=== PATIENT | female | born 1990 | race Caucasian/White ===

== ENCOUNTER → 2017-11-24 13:52 | Outpatient (CLI) | payer OTHER, SELFPAY ==
--- NOTE | 2017-11-24 14:04 | CT_ITS ---
STUDY: CT FACIAL BONES WITHOUT CONTRAST REASON FOR EXAM: Female, 27 years old. Sinusitis RADIATION DOSAGE (If Supplied By Facility): CTDIvol = ( 33.45 ) mGy, DLP = ( 797.27 ) mGycm TECHNIQUE: The patient was scanned in a multi detector CT scanner. Sagittal and coronal images were reconstructed. Individualized dose optimization techniques were used for this CT. COMPARISON: None. FINDINGS: Normal soft tissue structures. Normal orbital london and orbital contents. Normal nasal bones and anterior nasal spine. Normal facial bones. There is no demonstrated fracture. Normal visualized paranasal sinuses. CT/Sinus/Facial Bone IMPRESSION: Normal unenhanced CT of the facial bones. Electronically Signed: Tejinder Ivey MD at 21:54 EDT , Service support ,
== END ==
PROVIDERS: Referring Provider Otolaryngology; Visit Provider Otolaryngology
DX: J32.9 Chronic sinusitis, unspecified (principal)
CPT/HCPCS: 70486

== ENCOUNTER 2024-05-03 19:14 | Inpatient (IN) | payer OTHER, SELFPAY ==
[2024-05-03] VITALS (7 sets, daily range): BP systolic 105–115; BP diastolic 61–69; PULSE 68–75; RESP 15–16; TEMP 36.1–36.5; O2SAT 97–98; BMI 40.9
--- NOTE | 2024-05-03 19:44 | PCM.HP.OB ---
HPI - General General Date of Admission: 05/03/24 Date of Service: 05/03/24 HPI Narrative ELISABETH MARK, is a 33 F who presents for induction. Maternal Data Information BRUNILDA Calculator Estimated Delivery Date Method Current WG Current Estimate 05/22/24 Manual 37w 2d PFSH PFS Medical History (Updated 05/03/24 @ 19:[address] Jose Wilkins MD) GERD (gastroesophageal reflux disease) Allergy/AdvReac Type Severity Reaction Status Date / Time No Known Allergies Allergy Verified 05/03/24 19:35 Surgical History (Updated 05/03/24 @ 19:[address] Jose Wilkins MD) Hx of esophagogastroduodenoscopy Hx of appendectomy Social History Smoking Status: Never smoker History Elective abortions Hx Para 0 Spontaneous abortions Hx # Term Pregnancies Ectopic pregnancies Hx # Pregnancies Multiple births # of living children NST FHR Rate Baby A Baseline: 130 Variability:: Moderate Accelerations:: 15 x 15 Decelerations:: None Uterine Activity:: Q 1-2 minutes Vital Signs Vital Signs Vital Signs: 05/03/24 19:36 05/03/24 19:36 05/03/24 19:36 Temperature Temperature Source Pulse Rate 75 Respiratory Rate Blood Pressure 105/64 BP Systolic 105 BP Diastolic 64 Pulse Ox 98 05/03/24 19:36 05/03/24 19:36 05/03/24 19:36 Temperature 97.0 F L Temperature Source Temporal Pulse Rate Respiratory Rate 16 Blood Pressure BP Systolic BP Diastolic Pulse Ox Weight Weight: 253 lb 9 oz Body Mass Index (BMI) 40.9 Physical Exam Const alert, oriented x3 and no apparent distress Chest inspection of chest normal Resp normal respiratory effort GI soft to palpation, non-tender and non-distended Inspection: gravid external exam normal Narrative: cvx - 1.5/50/-2 Labs Labs Labs: No Data to Display Assessment & Plan (1) Gestational diabetes requiring insulin: COMMENT: @ 37&2 (2) LGA (large for gestational age) fetus: PLAN: Plan Admit to L&D. Induction for uncontrolled GDM per [facility]. Intracervical morocho placed. Will start pitocin if needed. GDM - management per diabetic protocol. GBS negative. EFW - about 4000g based recent US. Patient with adequate pelvis. Pain - epidural as desired. Routine care
[2024-05-03] MEDS: Lactated Ringers 1,000 ML 50 ML IV (19:50)
[2024-05-03 19:59] LABS: Absolute Lymphocyte Count 2.22 X10^3/uL (0.83-4.51); Absolute Neutrophil Count 7.5 X10^3/uL (2.0-7.7); Basophil# 0.05 X10^3/uL; Basophil% 0.5 % (0-1); Eosinophil# 0.13 X10^3/uL; Eosinophils% 1.2 % (0-5); Hematocrit 32.6 % (37-47); Hemoglobin 10.5 g/dL (12.0-15.0); Lymphocyte # 2.22 X10^3/ul (0.83-4.51); Lymphocyte % 21.3 % (19-41); Mean Corp Hgb Conc 32.2 g/dL (32-36); Mean Corpuscular Hgb 25.8 pg (27.0-32.0); Mean Corpuscular Volume 80.1 fL (81-99); Mean Platelet Vol. 10.4 fl (6.2-12.0); Monocyte# 0.48 X10^3/uL; Monocyte% 4.6 % (0-10); NRBC Flagged by Analyzer 0 % (0-5); Neutrophil # 7.49 X10^3/uL (2.7-7.7); Neutrophil % 71.7 % (47-70); Platelet Count 372 K/mm3 (150-450); RBC Distribution Width CV 13.8 % (11.6-14.6); RBC Distribution Width SD 39.7 fl (35.1-43.9); Red Blood Count 4.07 M/mm3 (4.2-5.4); White Blood Count 10.4 K/mm3 (4.4-11.0)
[2024-05-03] MEDS: 0.9% Normal Saline Single 100 ML IV.SOLN. INTRA-UTER (20:00)
[2024-05-03 20:32] LABS: Bedside Glucose 110 mg/dL (74-106)
[2024-05-03] MEDS: Mag Hydrox/Al Hydrox/Simeth 30 ML UDC PO (20:47)
[2024-05-03 21:15] LABS: Syphilis Antibodies Nonreactive (Nonreactive)
[2024-05-03 21:38] LABS: Bedside Glucose 114 mg/dL (74-106)
[2024-05-03 22:03] LABS: Bedside Glucose 95 mg/dL (74-106)
[2024-05-04] VITALS (85 sets, daily range): BP systolic 93–139; BP diastolic 51–81; PULSE 61–104; RESP 14–18; TEMP 36.1–39.2; O2SAT 87–100
[2024-05-04 01:44] LABS: Bedside Glucose 82 mg/dL (74-106)
[2024-05-04] MEDS: Oxytocin 15 Units/NS 250ml 15 UNITS/250 ML IV.SOLN 2 UNITS IV (02:55)
[2024-05-04] MEDS: Mag Hydrox/Al Hydrox/Simeth 30 ML UDC PO ×2 (04:06→18:03)
[2024-05-04] MEDS: Acetaminophen 500 MG Tablet PO ×2 (05:29→20:25)
[2024-05-04 05:33] LABS: Bedside Glucose 114 mg/dL (74-106)
[2024-05-04 08:02] LABS: Bedside Glucose 98 mg/dL (74-106)
[2024-05-04 09:08] LABS: Bedside Glucose 96 mg/dL (74-106)
[2024-05-04] MEDS: Lactated Ringers 1,000 ML 999 ML IV (09:43)
[2024-05-04 09:59] LABS: Bedside Glucose 101 mg/dL (74-106)
[2024-05-04] MEDS: fentaNYL-bupivacaine (epidural) 100 ML BAG EPIDURAL ×3 (10:36→17:56)
[2024-05-04 11:38] LABS: Bedside Glucose 95 mg/dL (74-106)
[2024-05-04] MEDS: Ondansetron 4 MG/2 ML Vial IV ×2 (12:48→20:49)
[2024-05-04] MEDS: Lactated Ringers 1,000 ML 200 ML IV ×3 (12:48→23:10)
[2024-05-04 12:49] LABS: Bedside Glucose 107 mg/dL (74-106)
[2024-05-04 14:14] LABS: Bedside Glucose 93 mg/dL (74-106)
[2024-05-04 15:02] LABS: Bedside Glucose 89 mg/dL (74-106)
[2024-05-04 15:59] LABS: Bedside Glucose 70 mg/dL (74-106)
[2024-05-04 17:02] LABS: Bedside Glucose 91 mg/dL (74-106)
[2024-05-04 17:57] LABS: Bedside Glucose 97 mg/dL (74-106)
[2024-05-04] MEDS: DiphenhydrAMINE 50 MG/ML Syringe 25 MG IV (18:19)
[2024-05-04 19:09] LABS: Bedside Glucose 96 mg/dL (74-106)
[2024-05-04] MEDS: LACTATED RINGERS 500 ML 999 ML IV (19:36)
--- NOTE | 2024-05-04 19:56 | PCM.PN.BLA ---
Progress Note feeling some increased pelvic pressure. Feeling chilled. Physical Exam Narrative cervix anterior lip, -1, progresses to 0 station w/ ctx. Moderate caput. DONNELL Assessment & Plan Assessment/Plan (1) LGA (large for gestational age) fetus: (2) Gestational diabetes requiring insulin: PLAN: now w/ fever, tachycardia. Suspected triple I. D/w her recommendation for tylenol and IV antibiotics. She agrees w/ plan. Recheck cervix in 1 hr and likely start pushing. Pelvis clinically adequate. EFW < 4500 gm clinically but GDM and LGA by US for gestational age. Cont. expectant management.
--- NOTE | 2024-05-04 20:16 | PCM.PN.CNM ---
Subjective Subjective Late entry from 1800. Patient seen at bedside. Comfortable with epidural replacement. Objective Data Objective Data Vital Signs: Vital Signs Temp Pulse Resp BP Pulse Ox 102.5 F H 104 H 16 102/54 L 100 05/04/24 19:50 05/04/24 19:49 05/04/24 18:49 05/04/24 19:49 05/04/24 17:29 Weight: 253 lb 9 oz Body Mass Index (BMI) 40.9 Intake & Output: Intake and Output for Last 24 Hours 05/02/24 05/03/24 05/04/24 23:59 23:59 23:59 Intake Total 3441.67 / 3441.67 Output Total 650 / 650 Balance 2791.67 / 2791.67 Lab / Micro Data 05/03/24 19:50 Labs: Laboratory Results - last 24 hr 05/03/24 19:50: Syphilis Total Ab Nonreactive, Blood Type O POSITIVE, Antibody Screen NEGATIVE 05/03/24 20:06: POC Glucose 110 H 05/03/24 20:52: POC Glucose 114 H 05/03/24 21:43: POC Glucose 95 05/04/24 01:18: POC Glucose 82 05/04/24 05:08: POC Glucose 114 H 05/04/24 07:37: POC Glucose 98 05/04/24 08:47: POC Glucose 96 05/04/24 09:35: POC Glucose 101 05/04/24 11:15: POC Glucose 95 05/04/24 12:18: POC Glucose 107 H 05/04/24 13:35: POC Glucose 93 05/04/24 14:40: POC Glucose 89 05/04/24 15:40: POC Glucose 70 L 05/04/24 16:43: POC Glucose 91 05/04/24 17:31: POC Glucose 97 05/04/24 18:48: POC Glucose 96 Assessment & Plan (1) LGA (large for gestational age) fetus: (2) Gestational diabetes requiring insulin: COMMENT: @ 37&2 (3) Encounter for induction of labor: PLAN: Plan CE - Moderate caput Anterior cervix swelling- Give Benadryl 25 mg IV x 1 now Continue Pitocin IV per protocol Dr. Dandre schmidt
[2024-05-04] MEDS: 0.9% Saline Lock 10 ML Syringe IV (20:49)
[2024-05-04] MEDS: GENTAMICIN IVPB (20:58)
[2024-05-04] MEDS: WATER IVPB (20:58)
[2024-05-04] MEDS: DEXTROSE 5% IVPB (20:58)
[2024-05-04] MEDS: Ampicillin 2 GM in 0.9% Normal Saline (100mL MB+) 100 ML IV (21:45)
[2024-05-04 22:57] LABS: Bedside Glucose 113 mg/dL (74-106)
[2024-05-04 22:57] LABS: Bedside Glucose 91 mg/dL (74-106)
[2024-05-04 23:04] LABS: Bedside Glucose 100 mg/dL (74-106)
[2024-05-05] VITALS (23 sets, daily range): BP systolic 81–124; BP diastolic 54–68; PULSE 72–109; RESP 14–97; TEMP 36.1–37; O2SAT 93–100
[2024-05-05 00:23] LABS: Bedside Glucose 120 mg/dL (74-106)
[2024-05-05 01:22] LABS: Bedside Glucose 128 mg/dL (74-106)
[2024-05-05] MEDS: 0.9% Saline Lock 10 ML Syringe IV ×6 (01:32→20:51)
--- NOTE | 2024-05-05 01:39 | PCM.PN.BLA ---
Progress Note Comfortable with epidural, some pressure caitlyn. in rectum Cervix complete-can feel anterior some cervix but caput through it. Large caput. Caput +2 but skull at 0 to +[address] Assessment & Plan Assessment/Plan (1) Encounter for induction of labor: (2) LGA (large for gestational age) fetus: (3) Gestational diabetes requiring insulin: PLAN: Plan Discussed with the patient that despite being anterior lip to complete since approximately 8 PM, there has not been a lot of significant descent with over 2 hours of active pushing. Patient has suspected triple I and has been started on antibiotics. I discussed with the patient that I would not recommend trial of vacuum-assisted vaginal delivery due to LGA status and increased risk of shoulder dystocia or failure. This may make the even more difficult. I discussed with her and her partner risk benefits and alternatives to proceeding with . Patient will have triple antibiotics, received TXA preoperatively, and will use the pillow to help elevate the skull out of the pelvis. Patient's questions were answered and she agrees to proceed. Delivery team is notified and being assembled for AUGUST .
[2024-05-05] MEDS: Sodium Citrate/Citric Acid 30 ML UDC PO (01:42)
--- NOTE | 2024-05-05 02:00 | PLAC_PTH ---
PATIENT: ELISABETH MARK LOC: [facility] U#:[id number] AGE/SX: 33/F ROOM: WP007 RE05/03/[address]: Dr. Thuy Amos MD : 1990 BED: 1 DIS: 05/08/2024 SPEC #: [id number] RECD: 05/05/24 09:37 STATUS: ANAYA REMorena #: [id number] MARGARITA: 05/05/24 02:[address]: Thuy Amos DEPT: SURGICAL PATHOLOGY RECD BY: Rebecca Gong ENTERED: 05/05/24 11:27 SP TYPE: PLACENTA OTHR DR: Vy Primary Care Phys Tissues: Placenta, NOS Procedures: Surgery Specimen Level V HEADER OPERATION: Primary section PRE-OP DIAGNOSIS: Maternal fever, suspected triple I TISSUE SUBMITTED: Placenta MICROSCOPIC DIAGNOSIS A. Placenta: * Mature third trimester placenta (867 grams, formalin fixed weight) with acute inflammation of the chorionic plate and subchorionic fibrin deposition * Three vessel umbilical cord with acute funisitis * membranes with acute chorioamnionitis MICROSCOPIC DESCRIPTION Slides are reviewed. GROSS DESCRIPTION SPECIMEN: PLACENTA / CLINICAL INFORMATION: A. Weight: 4.155 kg B. Gestational Age:37 weeks and 4 days C. Sex: Male PLACENTAL WEIGHT (POST FIXATION): 867gm PLACENTAL DIMENSIONS: 24.2 x 17.1 x 3.2 cm PLACENTAL SHAPE: Usual ovoid PLACENTAL WEIGHT FOR GESTATIONAL AGE: Within 10-99th percentile (over/under percentile) MEMBRANES - Present A. Insertion: Marginal B. Site of rupture from edge: 15.5 cm from edge of placental disc C. Color of membrane: Whitt-larios D. Abnormalities: Thick and focally cloudy UMBILICAL CORD - Present A. Color: Whitt-larios B. Insertion: Eccentric C. Length: 49.2 cm D. Diameter: 1.5 cm E. Number of vessels: Three F. Abnormalities: Focally dilated and contains red-brown blood clot PLACENTAL DISC - Present A. Color of surface: Whitt-larios B. surface abnormalities: Focal areas of subchorionic fibrin involving less than 5% of surface C. Maternal cotyledons: Focally disrupted D. Attached retro placental clot: Minimal amount of loosely adherent blood clot E. Cut surface: Dark red and spongy F. Lesions: None G. Separate clot: Absent SECTIONS SUBMITTED: 1. Membrane roll and two umbilical cord cross sections 2. surface sections with areas of fibrin 3. Maternal surface sections at area of disrupted cotyledons 4-5. Placental disc full thickness sections JK. 05/05/2024 CPT: 04536
--- NOTE | 2024-05-05 02:49 | OP.PCM_ITS ---
Assessment & Plan (1) LGA (large for gestational age) fetus: (2) delivery delivered: (3) Maternal fever during labor, delivered: PLAN: suspected triple I, received triple antibiotics, will cont. amp/clinda x 2 more doses, received gent. Maternal Data Information BRUNILDA Calculator Estimated Delivery Date Method Current WG Current Estimate 05/22/24 Manual 37w 4d Final BRUNILDA: 05/22/24 Gestational age: 37 47 Operative Report (OB) Cecarean Details Procedure Type: low transverse Date of Procedure: 05/05/24 Procedure Start Time: 02:08 Procedure Stop Time: 02:53 Time of Delivery: 02:11 Pre-Operative Diagnosis: Arrrest of Descent, Suspected cephalopelvic disproportion and Other Other Pre-Operative diagnosis: suspected triple I Post-Operative Diagnosis: Same as Pre-operative diagnosis Classification: AUGUST Type of Anesthesia: Epidural Special Medications: duramorph, TXA Antibiotic Given: Clindamycin 600mg IV x1 and Gentamicin 1.5mg/kg IV x1 (and amp) Drain: Serrano to straight drain Estimated Blood Loss: 900 Findings Description of surgery: The patient was taken to the operating room. Vaginal prep was done and the pillow was placed vaginally and inflated with 180 cc of normal saline in the usual sterile fashion. She was prepped and draped in the dorsal supine position.. A Pfannenstiel skin incision was made approximately 2 cm above the symphysis pubis and carried through to underlying layer fascia with the scalpel. The fascia was incised incised in the midline and extended laterally with the Cason scissors. The fascia was dissected off the rectus muscles with blunt and sharp dissection. The rectus muscles were in the midline and the peritoneum was entered bluntly. The peritoneal incision was stretched and the bladder blade was placed. The uterine incision was made in a low transverse fashion with the scalpel and extended superiorly and inferiorly with blunt dissection. The amniotic membranes were ruptured bluntly and clear amniotic fluid returned. A red rubber catheter was placed down past the head to help break the suction. Hand was placed under the infant's head and the suction was broken and care was taken to keep the head and the flexed position. The 's head was brought to the incision in the flexed position and delivered without difficulty. The remainder of the was delivered with gentle traction and fundal pressure in the standard fashion. The mouth and nares were bulb suctioned. The cord was clamped and cut as the infant was stimulated. Cord clamping was not delayed so that the infant could be taken to the warmer as he was not immediately vigorous. The was handed off to the waiting nursing staff. The placenta was delivered with fundal massage and gentle traction in the standard fashion. The uterus was exteriorized and cleared of all clots and debris. . The uterine incision was closed with #1 Vicryl in a running locked fashion. There was a cervical laceration extending down on the patient's right side that was secured with the same suture. Hemostasis was noted. A second layer of the same suture was used in an imbricating fashion over the midportion of the incision where there was some bleeding sinuses. The incision was examined and was found to be hemostatic. The uterus was placed back into the peritoneal cavity and hemostasis was again confirmed. There is small amount of oozing from some peritoneal surfaces. Hamablast was placed over the uterine incision and pressure was held for 2 min utes and hemostasis was noted. The rectus muscles were examined and any bleeding was Bovie cauterized. The parietal peritoneum and rectus muscles were closed en bloc with an 0 Vicryl running suture. Hemablast was placed over that layer along with a little Isela. The rectus fascia was examined and any bleeding was Bovie cauterized and the rectus fascia was closed with #1 PDS suture in a running standard fashion. Isela was placed over the rectus fascia and the subcutaneous tissue. The subcutaneous tissue was examining and any bleeding was Bovie cauterized. The subcutaneous tissue was reapproximated with 3-0 Vicryl suture. The skin was closed in a subcuticular fashion by the CHIEF CRUISER with me present in the labor and delivery suite. I performed the remainder of the procedure with assistance. All sponge, lap, and needle counts were correct. The patient was taken to her room for recovery in a stable condition. Surgical findings: Normal tubes and ovaries normal placenta with three-vessel cord Presentation: Vertex Amniotic Membrane Rupture Type: Artificial Amniotic Fluid Description: Clear Placental Delivery Description: Expressed Placenta Disposition: [facility] Specimen collected: Yes Description of specimen(s) removed: placenta Cord Vessel Description: 3 Vessels Cord Entanglement: Around neck x 1, loose Nuchal Cord Compression: Without compression Cord Gases: ABG and VBG Infant A gender: Male (Nadeem) (1 minute): 3 (5 minute): 5 ( 7 at 10 min) Delayed Cord Clamping: Yes Turkey Boner gaming dealer: Yes Surveyor: Alf Godfrey Tasks completed by certified surgical first assistant: Closing, Altering tissue and Retracting Additional chemical laboratory assistant?: No Complications Complications: No
[2024-05-05] MEDS: Oxytocin 15 Units/NS 250ml 15 UNITS/250 ML IV.SOLN 83 UNITS IV (03:10)
[2024-05-05] MEDS: Ketorolac 30 MG/ML Syringe IV ×4 (03:41→20:51)
[2024-05-05 04:20] LABS: Bedside Glucose 119 mg/dL (74-106)
[2024-05-05] MEDS: LACTATED RINGERS 500 ML 999 ML IV (05:52)
[2024-05-05] MEDS: Lactated Ringers 1,000 ML 100 ML IV (05:52)
[2024-05-05] MEDS: Acetaminophen 500 MG Tablet 1000 MG PO ×4 (05:53→23:56)
--- NOTE | 2024-05-05 06:16 | NURSING ---
Pt was up with x2 assist to bathroom, pt was able to ambulate well with standby assist. Pt started to feel lightheaded and dizzy, and was assisted to a wheel chair. Pt passed out for approximately 15 seconds while sitting in the wheel chair and was able to transfer back into bed from wheelchair with x2 assist. Once in bed pt stated the dizziness was improving, BP was 91/58, and bleeding was appropriate. Pt instructed to call for help before ambulating and morocho left in place. Provider notified and a 500ml bolus was initiated. Will plan for morning CBC and continue to monitor closely.
[2024-05-05 06:24] LABS: Hematocrit 26.3 % (37-47); Hemoglobin 8.5 g/dL (12.0-15.0); Mean Corp Hgb Conc 32.3 g/dL (32-36); Mean Corpuscular Volume 80.4 fL (81-99); Mean Platelet Vol. 10.4 fl (6.2-12.0); Platelet Count 276 K/mm3 (150-450); RBC Distribution Width CV 13.9 % (11.6-14.6); RBC Distribution Width SD 40.5 fl (35.1-43.9); Red Blood Count 3.27 M/mm3 (4.2-5.4); White Blood Count 20.6 K/mm3 (4.4-11.0)
[2024-05-05] MEDS: Ampicillin 2 GM in 0.9% Normal Saline (100mL MB+) 100 ML IV ×2 (08:24→14:59)
[2024-05-05] MEDS: Clindamycin 600 MG/50 ML BAG 100 MG IV ×2 (09:16→15:40)
[2024-05-05] MEDS: Senna/Docusate Sodium 1 Tablet PO ×2 (09:22)
[2024-05-05 11:04] LABS: Pathology Specimen OB SEE PATHOLOGY REPORT
[2024-05-05] MEDS: Enoxaparin 40 MG/0.4 ML Syringe SC (14:57)
[2024-05-06 02:00] VITALS: BP 87/54; PULSE 75; RESP 16; TEMP 36.3; O2SAT 97
[2024-05-06] MEDS: Enoxaparin 40 MG/0.4 ML Syringe SC ×2 (02:04→14:46)
[2024-05-06] MEDS: Ibuprofen 600 MG Tablet PO ×4 (03:29→21:24)
[2024-05-06 06:07] LABS: Hematocrit 24.6 % (37-47); Hemoglobin 7.9 g/dL (12.0-15.0); Mean Corp Hgb Conc 32.1 g/dL (32-36); Mean Corpuscular Hgb 26.3 pg (27.0-32.0); Mean Platelet Vol. 10.3 fl (6.2-12.0); Platelet Count 312 K/mm3 (150-450); RBC Distribution Width CV 14.3 % (11.6-14.6); RBC Distribution Width SD 41.8 fl (35.1-43.9); White Blood Count 22.8 K/mm3 (4.4-11.0)
[2024-05-06 06:21] LABS: Bedside Glucose 113 mg/dL (74-106)
[2024-05-06] MEDS: Acetaminophen 500 MG Tablet 1000 MG PO ×3 (06:57→18:25)
--- NOTE | 2024-05-06 06:57 | PCM.PN.OB ---
Subjective Subjective Patient sleeping. Has been breast feeding on and off all night. Hgb 7.9 this am. Lochia mild per nursing. Giving IV iron today. Objective Data Objective Data Vital Signs: Vital Signs Temp Pulse Resp BP Pulse Ox O2 Del Method 97.3 F L 75 16 87/54 L 97 Room Air 05/06/24 02:00 05/06/24 02:00 05/06/24 02:00 05/06/24 02:00 05/06/24 02:00 05/06/24 02:00 Oxygen Delivery Method Room Air Weight: 115.014 kg Body Mass Index (BMI) 40.9 Intake & Output: Intake and Output for Last 24 Hours 05/04/24 05/05/24 05/06/24 23:59 23:59 23:59 Intake Total 5101.92 / 5101.92 2463.33 / 2463.33 Output Total 650 / 650 2900 / 2900 Balance 4451.92 / 4451.92 -436.67 / -436.67 Lab / Micro Data 05/06/24 05:55 Labs: Laboratory Results - last 24 hr 05/06/24 05:47: POC Glucose 113 H 05/06/24 05:55: WBC 22.8 H, RBC 3.00 L, Hgb 7.9 L, Hct 24.6 L, MCV 82.0, MCH 26.3 L, MCHC 32.1, RDW Std Deviation 41.8, RDW Coeff of Mykel 14.3, Plt Count 312, MPV 10.3 Assessment & Plan (1) delivery delivered: (2) anemia: PLAN: Plan IV iron today with repeat tomorrow am
[2024-05-06] MEDS: Senna/Docusate Sodium 1 Tablet PO (08:54)
[2024-05-06] MEDS: Iron Sucrose Complex 200 MG in 0.9% Normal Saline (100mL Bag) 100 ML 220 MG IV (08:55)
[2024-05-06] MEDS: 0.9% Saline Lock 10 ML Syringe IV (08:55)
[2024-05-06 09:12] VITALS: BP 104/64; PULSE 82; RESP 16; TEMP 36.2; O2SAT 98
[2024-05-06 14:43] VITALS: BP 108/65; PULSE 92; RESP 16; TEMP 36.2; O2SAT 98
[2024-05-06 20:15] VITALS: BP 106/69; PULSE 84; RESP 16; TEMP 36.4; O2SAT 99
[2024-05-07] MEDS: Acetaminophen 500 MG Tablet 1000 MG PO ×4 (00:33→20:52)
[2024-05-07 01:55] VITALS: BP 108/82; PULSE 90; RESP 16; TEMP 36.4; O2SAT 99
[2024-05-07] MEDS: Ibuprofen 600 MG Tablet PO ×4 (03:00→21:25)
[2024-05-07] MEDS: Enoxaparin 40 MG/0.4 ML Syringe SC ×2 (03:00→16:44)
[2024-05-07 06:07] LABS: Absolute Lymphocyte Count 2.24 X10^3/uL (0.83-4.51); Absolute Neutrophil Count 14.1 X10^3/uL (2.0-7.7); Basophil# 0.07 X10^3/uL; Basophil% 0.4 % (0-1); Eosinophil# 0.29 X10^3/uL; Eosinophils% 1.7 % (0-5); Hemoglobin 8.2 g/dL (12.0-15.0); Lymphocyte # 2.24 X10^3/ul (0.83-4.51); Lymphocyte % 12.8 % (19-41); Mean Corp Hgb Conc 31.5 g/dL (32-36); Mean Corpuscular Hgb 25.6 pg (27.0-32.0); Mean Corpuscular Volume 81.3 fL (81-99); Mean Platelet Vol. 10.3 fl (6.2-12.0); Monocyte# 0.66 X10^3/uL; Monocyte% 3.8 % (0-10); NRBC Flagged by Analyzer 0 % (0-5); Neutrophil # 14.06 X10^3/uL (2.7-7.7); Neutrophil % 80.3 % (47-70); Platelet Count 419 K/mm3 (150-450); RBC Distribution Width CV 14.3 % (11.6-14.6); White Blood Count 17.5 K/mm3 (4.4-11.0)
[2024-05-07 08:21] VITALS: BP 131/82; PULSE 104; RESP 18; TEMP 36.2
[2024-05-07] MEDS: Senna/Docusate Sodium 1 Tablet PO (09:35)
--- NOTE | 2024-05-07 10:43 | PCM.PN.OB ---
Subjective Subjective Doing well per patient and nursing staff. Ambulating and taking PO without difficulty. Voiding and passing flatus. Pain controlled. , services for assistance. Denies headache, visual changes, chest pain, shortness of breath, leg pain or increased bleeding. Lochia normal. Objective Data Objective Data Vital Signs: Vital Signs Temp Pulse Resp BP Pulse Ox O2 Del Method 97.2 F L 104 H 18 131/82 H 99 Room Air 05/07/24 08:21 05/07/24 08:21 05/07/24 08:21 05/07/24 08:21 05/07/24 01:55 05/07/24 08:21 Oxygen Delivery Method Room Air Weight: 253 lb 9 oz Body Mass Index (BMI) 40.9 Intake & Output: Intake and Output for Last 24 Hours 05/05/24 05/06/24 05/07/24 23:59 23:59 23:59 Intake Total 2463.33 / 2463.33 110 / 110 Output Total 2900 / 2900 Balance -436.67 / -436.67 110 / 110 Lab / Micro Data 05/07/24 05:55 Labs: Laboratory Results - last 24 hr 05/07/24 05:55: WBC 17.5 H, RBC 3.20 L, Hgb 8.2 L, Hct 26.0 L, MCV 81.3, MCH 25.6 L, MCHC 31.5 L, RDW Std Deviation 42.0, RDW Coeff of Mykel 14.3, Plt Count 419, MPV 10.3, Immature Gran % (Auto) 1.000 H, Neut % (Auto) 80.3 H, Lymph % (Auto) 12.8 L, Radford % (Auto) 3.8, Eos % (Auto) 1.7, Baso % (Auto) 0.4, Absolute Neuts (auto) 14.1 H, Absolute Lymphs (auto) 2.24, Nucleated RBC % 0 ROS Constitutional Constitutional: Reports systems reviewed and no addt'l complaints, except as documented; Denies headache(s) Eyes Eyes: Denies acute decrease in peripheral vision, blurry vision or change in vision ENT HEENT: Reports systems reviewed and no addt'l complaints, except as documented Cardiovascular Cardiovascular: Denies chest pain or dizziness Respiratory/Chest Respiratory/Chest: Denies cough, dyspnea, dyspnea on exertion, shortness of breath at rest or shortness of breath with exertion Gastrointestinal Gastrointestinal: Denies abdominal pain, diarrhea, nausea or vomiting Genitourinary Genitourinary: Denies abdominal discomfort Musculoskeletal Musculoskeletal: Denies limited range of motion Integumentary Integumentary: Reports systems reviewed and no addt'l complaints, except as documented Neurologic Neurologic: Reports systems reviewed and no addt'l complaints, except as documented Psychiatric Psychiatric: Reports systems reviewed and no addt'l complaints, except as documented Endocrine Endocrinology: Reports systems reviewed and no addt'l complaints, except as documented Hematologic/Lymphatic Hematologic/Lymphatic: Reports systems reviewed and no addt'l complaints, except as documented Allergic/Immunologic Allergic/Immunologic: Reports systems reviewed and no addt'l complaints, except as documented Physical Exam Const alert and oriented x3 General Appearance: cooperative Orientation / Consciousness: awake, oriented to person, oriented to place and oriented to time Exam Limitations: no limitations HEENT normocephalic Head and Scalp: normal to inspection, normocephalic and atraumatic Face and Sinus: normal facial exam Eyes General Eye: normal appearance of both eyes Neck full ROM Chest Chest: symmetrical chest wall rise Resp normal respiratory effort and normal air movement Auscultation: clear to auscultation bilaterally Cardio regular rate, regular rhythm, S1 normal heart sound, S2 normal heart sound, no murmurs, no rub, no gallops and no clicks GI normal to inspection, nondistended, normoactive bowel sounds and non-tender appearance of the vagina normal Bladder / Kidney Exam: no CVA tenderness Back/Spine normal ROM Extremity normal to inspection and full ROM Skin no rashes or lesions noted Neuro oriented x3, CN's II-XII intact bilaterally and moves all extremities Sensorium / Orientation: awake, alert and oriented to person Motor Exam: clonus absent Deep Tendon Reflexes: Rt Patellar (L4): 2+ and Lt Patellar (L4): 2+ Assessment & Plan (1) anemia: (2) Maternal fever during labor, delivered: (3) delivery delivered: (4) Lactating mother: PLAN: Plan 1) Routine PPD#1 2) Vitals stable 3) I&O 4) Pain management 5) services PRN 6) Planning D/C home tomorrow
[2024-05-07] MEDS: oxyCODONE 5 MG Tablet PO ×2 (13:44→20:53)
[2024-05-07 15:24] VITALS: BP 116/69; PULSE 88; RESP 17; TEMP 36
[2024-05-07] MEDS: Ferrous Sulfate 325 MG Tablet PO (17:48)
[2024-05-07 20:45] VITALS: BP 107/85; PULSE 86; RESP 16; TEMP 36.8; O2SAT 100
[2024-05-07] MEDS: SimETHICONE 80 MG Chewable Tablet PO (20:52)
[2024-05-08 01:37] VITALS: BP 110/71; PULSE 83; RESP 16; TEMP 36.4; O2SAT 98
[2024-05-08] MEDS: Enoxaparin 40 MG/0.4 ML Syringe SC (05:13)
[2024-05-08] MEDS: Acetaminophen 500 MG Tablet 1000 MG PO (05:18)
[2024-05-08] MEDS: Ibuprofen 600 MG Tablet PO ×2 (05:18→10:34)
--- NOTE | 2024-05-08 07:05 | PCM.PROGNOTE ---
Subjective Subjective patient seen at bedside, doing well. Patient reports good pain control. lochia mild. pain well controlled. passing flatus, ambulating. breast feeding. Objective Data Objective Data Vital Signs: Vital Signs Temp Pulse Resp BP Pulse Ox O2 Del Method 97.6 F L 83 16 110/71 98 Room Air 05/08/24 01:37 05/08/24 01:37 05/08/24 01:37 05/08/24 01:37 05/08/24 01:37 05/08/24 01:37 Oxygen Delivery Method Room Air Weight: 115.014 kg Body Mass Index (BMI) 40.9 Intake & Output: Intake and Output for Last 24 Hours 05/06/24 05/07/24 05/09/24 23:59 23:59 00:59 Intake Total 110 / 110 Balance 110 / 110 Lab / Micro Data 05/07/24 05:55 Labs: Laboratory Results - last 24 hr 05/07/24 05:55: WBC 17.5 H, RBC 3.20 L, Hgb 8.2 L, Hct 26.0 L, MCV 81.3, MCH 25.6 L, MCHC 31.5 L, RDW Std Deviation 42.0, RDW Coeff of Mykel 14.3, Plt Count 419, MPV 10.3, Immature Gran % (Auto) 1.000 H, Neut % (Auto) 80.3 H, Lymph % (Auto) 12.8 L, Crenshaw % (Auto) 3.8, Eos % (Auto) 1.7, Baso % (Auto) 0.4, Absolute Neuts (auto) 14.1 H, Absolute Lymphs (auto) 2.24, Nucleated RBC % 0 Physical Exam Narrative Abd: soft, fundus firm. dressing dry and intact. Const alert and oriented x3 General Appearance: cooperative HEENT normocephalic Neck General: normal visual inspection GI soft to palpation and non-distended GI Narrative: Fundus firm Extremity normal to inspection and no calf tenderness Skin no rashes or lesions noted Neuro oriented x3 and CN's II-XII intact bilaterally Psych mental status grossly normal Assessment & Plan Assessment/Plan (1) Lactating mother: (2) anemia: (3) delivery delivered: (4) Gestational diabetes requiring insulin: PLAN: Plan POD# 3 , Doing well Routine care pain mgmt monitor VS ambulation dc home
--- NOTE | 2024-05-08 07:06 | DCINST_ITS ---
Discharge Instructions Diet Discharge Diet: No restrictions DC O2, CPAP, BIPAP needs Home O2 Discharge instructions: No Dressing / Incision May resume sexual activity in: 6-8 weeks Lifting Restrictions: 25 Dressing / Incision Call your doctor if your incision/area has: Continuous Slow Oozing, Sudden Increased Bleeding, Increased Pain/ Swelling, Increased Redness, Foul Smelling Discharge and Swelling at the incision site Call your doctor if you observe: Fever of 101 or Higher, Inability to urinate, Using more than 1 pad per hour and Uncontrolled pain Additional Dressing/Incision Instructions:: remove dressing at 7 days post op- if it becomes saturated prior to that time you may remove it. Let soap and water run over incision sites and dab dry. keep incision clean and dry. Follow Up Care Please Follow Up With: Thuy Amos MD When: 1 week post of incision check and again at 6 weeks post . [phone] Test Results: Test results from this visit will be discussed in further detail at your follow- up appointment, if applicable. Discharge Plan Admission Admit Date/Time: 05/03/24 19:14 Attending Provider: Thuy Amos Primary Care Provider: Care Physician,Vy Primary Discharge Orders/Prescriptions Prescriptions: New sennosides-docusate sodium [Stimulant Laxative Plus] 8.6-50 mg Tablet 1 - 2 tab PO DAILY Qty: 0 0RF acetaminophen 500 mg Tablet 1,000 mg PO Q6 Qty: 0 0RF ferrous sulfate [FeroSul] 325 mg (65 mg iron) Tablet 325 mg PO DAILY@1200 Qty: 0 0RF ibuprofen 600 mg Tablet 600 mg PO Q6H Qty: 0 0RF simethicone 80 mg Tablet,Chewable 80 mg PO PCHS PRN (Reason: Indigestion/stomach pain) Qty: 0 0RF Continued PNV #[id number] 27 mg iron-1 mg -300 mg-50 mg capsule PO Discontinued aspirin 81 mg capsule 81 mg PO DAILY insulin lispro 100 unit/mL insulin pen 12 unit subcut BID Humulin N NPH Insulin KwikPen 100 unit/mL (3 mL) insulin pen 22 unit subcut DAILY Referrals / Follow Up: Care Physician,No Primary [Primary Care Provider] - Disposition Disposition (needs filled in before D/C Order can be placed): Home, Self Care
--- NOTE | 2024-05-08 07:11 | DS.PCM_ITS ---
Discharge Summary Date of Admission: 05/04/24 Date of Discharge: 05/08/24 Summary: Patient was admitted to [facility] on 05/04/2024 for labor induction due to LGA uncontrolled diabetes requiring insulin at 37 weeks gestation. Patient progressed to fully dilated and pushing however developed suspected triple I, suspected cephalopelvic disproportion and arrest of descent underwent a primary section by Dr. Thuy Amos. Patient had an uncomplicated postoperative course and was discharged home on postoperative day #3 in stable condition. Meaningful Use Info Meaningful Use Meaningful Use Diagnoses (Choose all that apply): None applicable Ischemic Stroke Statin Dosing Therapy Reference: STATIN DOSE THERAPY REFERENCE: * Patients > 75 years receive moderate or high dose statin therapy. * Patients 75 years or YOUNGER should receive HIGH intensity statin dose unless contraindicated. You will be required to document reason for non-treatment if statin daily dose does not meet guidelines. HIGH DOSE STATIN THERAPY DAILY Atorvastatin > than or = to 40 mg Rosuvastatin > than or = to 20 mg Amlodipine + Atorvastatin > than or = to 2.5/40 mg Ezetimibe + Simvastatin 10/80 mg Simvastatin 80mg Discharge Plan Admission Admit Date/Time: 05/03/24 19:14 Attending Provider: Thuy Amos Primary Care Provider: Care Physician,Vy Primary Discharge Orders/Prescriptions Prescriptions: New sennosides-docusate sodium [Stimulant Laxative Plus] 8.6-50 mg Tablet 1 - 2 tab PO DAILY Qty: 0 0RF acetaminophen 500 mg Tablet 1,000 mg PO Q6 Qty: 0 0RF ferrous sulfate [FeroSul] 325 mg (65 mg iron) Tablet 325 mg PO DAILY@1200 Qty: 0 0RF ibuprofen 600 mg Tablet 600 mg PO Q6H Qty: 0 0RF simethicone 80 mg Tablet,Chewable 80 mg PO PCHS PRN (Reason: Indigestion/stomach pain) Qty: 0 0RF Continued PNV #[id number] 27 mg iron-1 mg -300 mg-50 mg capsule PO Discontinued aspirin 81 mg capsule 81 mg PO DAILY insulin lispro 100 unit/mL insulin pen 12 unit subcut BID Humulin N NPH Insulin KwikPen 100 unit/mL (3 mL) insulin pen 22 unit subcut DAILY Referrals / Follow Up: Care Physician,No Primary [Primary Care Provider] - Disposition Disposition (needs filled in before D/C Order can be placed): Home, Self Care
[2024-05-08 08:17] VITALS: BP 111/84; PULSE 93; RESP 16; TEMP 36.2; O2SAT 98
[2024-05-08] MEDS: FLU VACC 2024-25(6MOS UP)/PF 45 MCG/0.5 ML SYRINGE IM (09:55)
[2024-05-08] MEDS: Senna/Docusate Sodium 1 Tablet PO (10:34)
== END 2024-05-08 10:45 | disposition home or self-care (01) | DRG 786 ==
PROVIDERS: Obstetrics & Gynecology; Admitting Provider Obstetrics & Gynecology; Referring Provider Obstetrics & Gynecology; Visit Provider Obstetrics & Gynecology
DX: O24.424 Gestational diabetes mellitus in childbirth, insulin controlled (principal); O41.1230 Chorioamnionitis, third trimester, not applicable or unspecified; O33.9 Maternal care for disproportion, unspecified; O36.63X0 Maternal care for excessive fetal growth, third trimester, not applicable or unspecified; O62.1 Secondary uterine inertia; Z37.0 Single live birth; O76 Abnormality in fetal heart rate and rhythm complicating labor and delivery; O69.81X0 Labor and delivery complicated by cord around neck, without compression, not applicable or unspecified; O90.81 Anemia of the puerperium; Z3A.37 37 weeks gestation of pregnancy; Z23 Encounter for immunization
CPT/HCPCS: 59025; 59050; 82962; 85025; 85027; 86780; 86850; 86900; 86901; 88307; 90656; 99221; J1756; A4216; G0378; J2405